=== PATIENT | female | born 1940 | race Caucasian/White ===

== ENCOUNTER → 2020-12-15 | Outpatient (CLI) | payer OTHER, MEDICARE ==
[~2020-12-15] VITALS: Ht 167.6 cm; Wt 87.5 kg
[~2020-12-15] MED LIST: BIOTIN1000 MCG PO; CALCIUM-MAG-ZI1 EACH PO; COZAAR100 MG PO; ESSENTIAL ENZYMES PO; HYDROCHLOROTH12.5 M2 PO; LIPITOR20 MG PO; NORVASC5 M1 PO; PROTONIX40 M2 PO; TURMERIC500 M2 PO; VITAMIN B-121000 MC3 PO; VITAMIN C500 M1 PO
--- NOTE | 2020-12-17 13:55 | P ---
[facility] [place] [address] PROCEDURE REPORT Name: WOJCIECH CAIN Room #: REG GABBY Pack#: [id number] Admission: 12/15/20 Attend Phys: Son Alatorre Discharge: Date of : 42 Report #: [id number] THIS REPORT FOR: cc: Lazaro Muñoz MD, Sahar R. MD McElhinney, Christian C. MD ~ DOC #: [id number] cc: Dr. Lazaro De La Torre MD DATE OF SERVICE: 12/15/2020 PROCEDURE PERFORMED: Upper endoscopy with biopsies. INDICATIONS FOR PROCEDURE: The patient is a 80-year-old female with a history of heartburn, began taking Protonix 40 mg b.i.d. within the last month and a half without much improvement, before that was taking Pepcid. She denies any dysphagia. No nausea or vomiting currently. She is taking Tums on a p.r.n. basis as well. Plan is for upper endoscopy. DESCRIPTION OF PROCEDURE: The risks and benefits of the procedure were explained to the patient, those risks including but not limited to bleeding, perforation and the risk of sedation. She understood these risks and gave informed consent. Sedation was given using propofol per anesthesia. Next, using a standard Olympus upper endoscope, the scope was placed in the patient's mouth and advanced under direct vision through the esophagus, stomach and into the second portion of the duodenum. The esophagus was normal throughout. The GE junction was normal. There was a diffuse mild gastritis noted in the fundus and gastric body. Biopsies were obtained to rule out H. pylori. The gastric antrum and pylorus were normal. The duodenal bulb, first and second portion were all normal. Random biopsies were obtained to rule out the possibility of celiac sprue. The scope was then withdrawn and the procedure terminated. The patient tolerated the procedure well. IMPRESSION: 1. Gastritis. 2. Otherwise, normal upper endoscopy. RECOMMENDATIONS: 1. Await biopsy results. 2. Continue b.i.d. PPI therapy for a longer period of time. If still no improvement, consider switching to a different PPI. At this time, we will add Carafate b.i.d. for the next few weeks as well. Thank you for allowing me to participate in her care. [address] [address] PROCEDURE REPORT Name: WOJCIECH CAIN Ruth Room #: ALICIA GABBY Pack#: [id number] Admission: 12/15/20 Attend Phys: Son Alatorre Discharge: Date of : 42 Report #: [id number] Son De La Torre MD CCM/GALLOK <ELECTRONICALLY SIGNED> By: Son De La Torre MD 12/17/20 1355 [id number] [id number] Son De La Torre MD /casey
--- NOTE | 2020-12-20 18:06 | PATH ---
[facility] [place] [address] PATHOLOGY RPT PROCEDURE Name: WENDI CAIN Room #: REG [facility] Malini.#: [id number] Admission: 12/15/20 Date of : 42 Discharge: Report #: [id number] Path Case #: [id number] [facility] Accession Number: [id number] . 01 Material submitted: . PART A: duodenum - DUODENAL BIOPSY PART B: gastrointestinal site - GASTRIC BIOPSY R/O H PYLORI . 01 Clinical history: . ABD PAIN, HX GASTRITIS EGD . 02 Diagnosis: A. Tissue designated as, "duodenal rule out celiac sprue", endoscopic biopsy: - Gastric mucosal fragment with mild chronic active gastritis and features of reactive gastropathy. - Negative for intestinal metaplasia or atrophy. - Helicobacter pylori immunohistochemical stain pending, to be reported as an addendum. . B. Tissue designated as, "gastric rule out H. pylori", endoscopic biopsy: - Fragments of small bowel mucosa with mild acute and chronic nonspecific duodenitis. - Negative for villous blunting or increase in intraepithelial lymphocytes. - Properly-controlled Helicobacter pylori immunohistochemical stain showing no organisms present. . (IUV:mml; 12/17/2020) QLM 12/17/2020 1229 Local . 02 Addendum: . This addendum is issued subsequent to reviewing a properly controlled Helicobacter pylori immunohistochemical stain performed on block A1 which represents a gastric mucosal fragment. The immunohistochemical stain shows numerous Helicobacter pylori organisms present. Based on this interpretation, the originally rendered diagnosis is further defined as follows: . A. Tissue designated as "duodenal, rule out celiac sprue", endoscopic biopsy: - Helicobacter pylori-induced mild chronic active gastritis with features of reactive gastropathy. - Negative for intestinal metaplasia or atrophy. - Helicobacter pylori immunohistochemical stain showing numerous organisms present. [facility] [place] [address] PATHOLOGY RPT PROCEDURE Name: CAINWENDI MORENO Room #: REG CLI Ramone#: [id number] Admission: 12/15/20 Date of : 42 Discharge: Report #: [id number] Path Case #: [id number] . (IUV:facing grinder; 12/20/2020) . Professional services performed by [facility] at [facility], [address] [place], [place] [address]m[address] [place], [place] [address]. Technical services performed by [facility] at [address] [place] [address], [address], [place] [address]. MBR/12/20/2020 Addendum Electronically Signed by Senait Khan MD, Pathologist . 02 Electronically signed: . Senait Khan MD, Pathologist NPI- [id number] . 01 Gross description: . A. The specimen is received in formalin, labeled "Cain Wendi", "duodenal biopsy rule out C sprue". Received are multiple segments of pale duran soft tissue ranging in size from 0.1 cm to 0.2 cm. The specimen is entirely submitted in cassette A1. . B. The specimen is received in formalin, labeled "CainDelt", "gastric biopsy rule out H. pylori". Received are multiple segments of pale duran soft tissue ranging in size from 0.1 cm to 0.3 cm. The specimen is entirely submitted in cassette B1.(SNA; 12/16/2020) ERMIAS/LOS 12/16/2020 0845 Local . 02 Pathologist provided ICD-10: K29.50, B96.81, K29.80 . 02 CPT . 044320, 036964, [id number] Specimen Comment: A courtesy copy of this report has been sent to [phone] Specimen Comment: Report sent to Performed at: 01 [facility] [address], [place], [place] [id number] MD Brigido Mejia MD Phone: [phone] Performed at: [address] [id number] MD Senait Khan MD Phone: [phone]
== END | disposition home or self-care (01) ==
LOC: GI 08:51
PROVIDERS: ATTEND Specialist
DX: R12 Heartburn (principal); K29.50 Unspecified chronic gastritis without bleeding; K31.89 Other diseases of stomach and duodenum; K29.80 Duodenitis without bleeding; E78.5 Hyperlipidemia, unspecified; K21.9 Gastro-esophageal reflux disease without esophagitis; I12.9 Hypertensive chronic kidney disease with stage 1 through stage 4 chronic kidney disease, or unspecified chronic kidney disease; N18.30 Chronic kidney disease, stage 3 unspecified; Z20.822 Contact with and (suspected) exposure to COVID-19; Z79.899 Other long term (current) drug therapy; Z98.890 Other specified postprocedural states
CPT/HCPCS: 62110; 62900